=== PATIENT | female | born 1935 | race African-American/Black ===

== ENCOUNTER 2017-01-31 12:34 | Inpatient (IN) | payer SELFPAY ==
[~2017-01-31] VITALS: Ht 167.6 cm; Wt 81.2 kg
[2017-01-31] MEDS ORDERED: SODIUM CHLORIDE 0.9% 1,000 ML IV ONE ×2 (12:55→12:57)
[2017-01-31] MEDS ORDERED: diphenhdrAMINE HCL 50 MG/1 ML VL IM ONE (14:00)
[2017-01-31] MEDS ORDERED: LORazepam 2MG/ML-1ML VIAL IM ONE (14:00)
[2017-01-31 17:11] LABS: Basophils # (auto) 0 uL; Basophils % (auto) 0.3 % (0.0-2.0); Eosinophils # (auto) 0.1 uL; Eosinophils % (auto) 1.2 % (0.0-7.0); Hematocrit 35.9 % (36.0-46.0); Hemoglobin 11.6 g/dL (12.2-16.2); Lymphocytes # (auto) 1.8 uL; Lymphocytes % (auto) 18.5 % (10.0-50.0); Mean Corpuscular Hemoglobin 28.9 pg (28.0-32.0); Mean Corpuscular Hgb Conc. 32.3 g/dL (32.0-36.0); Mean Corpuscular Volume 89.6 fL (80.0-100.0); Mean Platelet Volume 6.2 fL (7.4-10.4); Monocytes # (auto) 0.7 uL; Monocytes % (auto) 7.2 % (0.0-12.0); Neutrophils % (auto) 72.8 % (37.0-80.0); Platelet Count (auto) 494 10^3/uL (140-450); Red Cell Distribution Width 15.2 % (11.6-16.0); White Blood Cell 9.7 10^3/uL (4.4-10.8)
[2017-01-31 17:27] LABS: INR 1.11 (0.9-1.15); Partial Thromboplastin Time 46.8 sec (22.64-33.71)
[2017-01-31 17:57] LABS: B-Type Natriuretic Peptide 69.85 pg/mL (0-100)
[2017-01-31 17:59] LABS: Albumin 2.6 g/dL (3.4-5.0); Alkaline Phosphatase 132 U/L (45-117); Anion Gap 10 (5-15); Aspartate Aminotransferase 17 U/L (15-37); BUN/Creatinine Ratio 5.7; Bilirubin, Total 0.4 mg/dL (0.2-1.0); Blood Urea Nitrogen 8 mg/dL (7-18); Calcium 8.7 mg/dL (8.5-10.1); Carbon Dioxide 24 mmol/L (21-32); Chloride 108 mmol/L (98-107); GFR African American 46 mL/min; GFR Non-African American 38 mL/min; Glucose 72 mg/dL (74-106); Potassium 3.7 mmol/L (3.5-5.1); Sodium 142 mmol/L (136-145); Total Protein 7.1 g/dL (6.4-8.2)
[2017-01-31 18:00] LABS: Temperature: 23.1 C (20.0-25.0)
[2017-01-31] MEDS ORDERED: ACETAMINOPHEN 500 MG TAB PO PRN (18:45)
[2017-01-31] MEDS ORDERED: HYDROcodone-ACET 5/325MG TAB PO PRN (18:45)
[2017-01-31] MEDS ORDERED: LACTULOSE 20Gm/30ML SOLN PO PRN (18:45)
[2017-01-31] MEDS ORDERED: MORPHINE SULF INJ 2 MG/ML SYRINGE 1ML IV PRN ×2 (18:45)
[2017-01-31] MEDS ORDERED: NITROGLYCERIN 0.4 MG SL TAB SL PRN (18:45)
[2017-01-31] MEDS ORDERED: LORazepam 0.5 MG TAB PO PRN (18:45)
[2017-01-31] MEDS ORDERED: TEMAZEPAM 15 MG CAP PO PRN (18:45)
[2017-01-31] MEDS ORDERED: PROCHLORPERAZINE EDISYLATE 5 MG/ML 2ML VIAL IV PRN (18:45)
[2017-01-31] MEDS ORDERED: ENOXAPARIN SOD 40 MG/0.4 ML SYRINGE SC SCH (20:29)
[2017-01-31] MEDS ORDERED: ASPirin 81 mg TAB PO ONE (20:45)
[2017-01-31] MEDS: FAMOTIDINE 20 MG TAB PO SCH (21:15)
[2017-01-31] MEDS: METOPROLOL TARTRATE 25 MG TAB PO SCH (21:15)
[2017-01-31] MEDS: ACCU-CHEK COMFORT CURVE STRIP VI SCH (21:16)
[2017-01-31] MEDS: SODIUM CHLORIDE 0.9% 1,000 ML IV SCH (21:16)
[2017-01-31 21:28] LABS: Amylase 66 U/L (25-115)
[2017-01-31 22:00] VITALS: BP 110/69
[2017-01-31] MEDS ORDERED: ATORVASTATIN 20 MG TAB PO SCH (22:00)
[2017-02-01] MEDS: ACCU-CHEK COMFORT CURVE STRIP VI SCH ×4 (02:14→13:49)
[2017-02-01 05:00] VITALS: BP 152/87
[2017-02-01 07:04] LABS: Basophils # (auto) 0 uL; Basophils % (auto) 0.5 % (0.0-2.0); Eosinophils # (auto) 0.3 uL; Eosinophils % (auto) 3.4 % (0.0-7.0); Hematocrit 34.3 % (36.0-46.0); Hemoglobin 11.5 g/dL (12.2-16.2); Lymphocytes # (auto) 1.9 uL; Lymphocytes % (auto) 25.7 % (10.0-50.0); Mean Corpuscular Hemoglobin 29.7 pg (28.0-32.0); Mean Corpuscular Hgb Conc. 33.5 g/dL (32.0-36.0); Mean Corpuscular Volume 88.8 fL (80.0-100.0); Monocytes # (auto) 0.6 uL; Monocytes % (auto) 7.6 % (0.0-12.0); Neutrophils # (auto) 4.6 uL; Neutrophils % (auto) 62.8 % (37.0-80.0); Platelet Count (auto) 441 10^3/uL (140-450); Red Cell Distribution Width 14.9 % (11.6-16.0); White Blood Cell 7.3 10^3/uL (4.4-10.8)
[2017-02-01] MEDS: SODIUM CHLORIDE 0.9% 1,000 ML IV SCH (07:59)
[2017-02-01 08:00] VITALS: BP 120/68
[2017-02-01 09:00] VITALS: BP 144/116
[2017-02-01] MEDS ORDERED: NITROGLYCERIN 0.2MG/HR TOPICAL PATCH TD SCH (10:00)
[2017-02-01] MEDS ORDERED: ASPirin 81 mg TAB PO SCH (10:00)
[2017-02-01] MEDS: FAMOTIDINE 20 MG TAB PO SCH (10:07)
[2017-02-01] MEDS: METOPROLOL TARTRATE 25 MG TAB PO SCH (10:12)
[2017-02-01] MEDS ORDERED: D5W/SOD CHLO 0.9% 1,000 ML IV SCH (15:15)
[2017-02-01 15:51] VITALS: BP 144/116
== END 2017-02-01 17:00 | disposition home or self-care (01) | DRG 313 ==
LOC: ER 12:34 → TELE 12:35 → TELE-CENTR 20:35
PROVIDERS: ADMIT Internal Medicine; ATTEND Nurse Practitioner Acute Care
DX: R07.89 Other chest pain (principal); R53.2 Functional quadriplegia; E44.1 Mild protein-calorie malnutrition; F41.9 Anxiety disorder, unspecified; D63.8 Anemia in other chronic diseases classified elsewhere; E78.5 Hyperlipidemia, unspecified; F03.90 Unspecified dementia, unspecified severity, without behavioral disturbance, psychotic disturbance, mood disturbance, and anxiety; I10 Essential (primary) hypertension; R10.9 Unspecified abdominal pain; Z68.28 Body mass index [BMI] 28.0-28.9, adult
CPT/HCPCS: 36415; 70450; 71010; 80053; 82150; 82550; 82962; 83690; 83880; 84484; 85025; 85379; 85610; 85652; 85730; 86141; 93005; 96360; 96372